=== PATIENT | female | born 1945 | race African-American/Black ===

== ENCOUNTER 2025-04-11 16:06 | Inpatient (IN) | payer OTHER ==
[~2025-04-11] VITALS: Ht 170.2 cm; Wt 112.0 kg
[2025-04-11] MEDS: ALBUTEROL (0.083%) 2.5MG/3ML NEB HHN SCH (16:33)
[2025-04-11] MEDS: IPRATROPIUM BROMIDE (0.02%) 0.5MG/2.5ML NEB HHN SCH (16:33)
[2025-04-11 16:36] VITALS: PULSE 98; RESP 18
[2025-04-11] MEDS: METHYLPREDNISOLONE SOD SUCC 125MG/2ML (ACT-O-VIAL) IV ONE (16:57)
[2025-04-11 17:39] LABS: INR 1.1
[2025-04-11 17:41] LABS: CREATININE 1.0 mg/dL (0.6-1.0); UREA NITROGEN BLOOD 9 mg/dL (9-23)
[2025-04-11 17:42] LABS: BASOPHILS % 0.2 % (0.0-2.0); EOSINOPHILS % 0.3 % (0.0-5.0); HEMATOCRIT. 39.0 % (36.0-48.0); HEMOGLOBIN. 12.8 g/dL (12.0-16.0); LYMPHOCYTES % 11.6 % (20.0-50.0); MEAN PLATELET VOLUME 8.5 fl (7.4-10.4); MONOCYTES % 6.8 % (2.0-8.0); NEUTROPHILS % 81.1 % (40.0-76.0); PLATELET 157 x1000/uL (130-400); RED BLOOD CELL COUNT 4.57 mill/uL (4.2-5.4); RED CELL DISTRIBUTION WIDTH 17.5 % (11.6-14.6)
[2025-04-11 17:43] LABS: ASPARTATE AMINOTRANSFERASE 29 IU/L (<34); BILIRUBIN DIRECT 0.3 mg/dL (<=3.0); BILIRUBIN TOTAL 1.1 mg/dL (0.1-1.0); PROTEIN TOTAL 7.5 g/dL (6.0-8.3)
[2025-04-11 17:48] LABS: TROPONIN I HIGH SENSITIVITY 77 ng/L (3.0-34)
[2025-04-11] MEDS: FUROSEMIDE 40MG/4ML VIAL IVP ONE (17:52)
[2025-04-11] MEDS: POTASSIUM CHLORIDE 20MEQ/PACKET PO ONE (18:15)
[2025-04-11] MEDS: MAGNESIUM 1 G PREMIX 100 ML IV ONE (21:05)
[2025-04-11 23:45] VITALS: BP 154/70; PULSE 77; RESP 22; TEMP 36.6404
[2025-04-11] MEDS: IPRATROPIUM/ALBUTEROL 0.5-3(2.5)MG/3ML NEB NEB SCH (23:45)
[2025-04-11] MEDS ORDERED: CLONIDINE 0.1MG TABLET PO PRN (23:45)
[2025-04-11] MEDS ORDERED: ONDANSETRON HCL 4MG/2ML INJ IV PRN (23:45)
[2025-04-11] MEDS ORDERED: ZOLPIDEM TARTRATE 5MG TABLET PO PRN (23:45)
[2025-04-11] MEDS ORDERED: MAGNESIUM/ALUMINUM HYDROXIDE/SIMETHICONE 30ML UDC PO PRN (23:45)
[2025-04-11] MEDS: METHYLPREDNISOLONE SOD SUCC 40MG/ML (ACT-O-VIAL) IV SCH (23:58)
[2025-04-12] VITALS (8 sets, daily range): BP systolic 126–154; BP diastolic 61–88; PULSE 69–94; RESP 18–22; TEMP 36.3–36.9; O2SAT 95–100
[2025-04-12] MEDS ORDERED: FURO-152 PO (00:55)
[2025-04-12] MEDS ORDERED: LOSA50TA41 PO (00:55)
[2025-04-12] MEDS: PANTOPRAZOLE SODIUM 40 MG/VIAL IV SCH (09:03)
[2025-04-12] MEDS: ENOXAPARIN 40MG/0.4ML SYR SUBCUT SCH (09:04)
[2025-04-12 09:54] LABS: BASOPHILS % 0.2 % (0.0-2.0); EOSINOPHILS % 0.0 % (0.0-5.0); HEMATOCRIT. 39.0 % (36.0-48.0); HEMOGLOBIN. 12.8 g/dL (12.0-16.0); LYMPHOCYTES % 9.9 % (20.0-50.0); MEAN PLATELET VOLUME 9.0 fl (7.4-10.4); MONOCYTES % 2.8 % (2.0-8.0); NEUTROPHILS % 87.1 % (40.0-76.0); PLATELET 161 x1000/uL (130-400); RED BLOOD CELL COUNT 4.58 mill/uL (4.2-5.4); RED CELL DISTRIBUTION WIDTH 17.9 % (11.6-14.6)
[2025-04-12 10:23] LABS: CREATININE 0.9 mg/dL (0.6-1.0)
[2025-04-12 10:24] LABS: UREA NITROGEN BLOOD 10 mg/dL (9-23)
[2025-04-12 10:37] LABS: TROPONIN I HIGH SENSITIVITY 136 ng/L (3.0-34)
[2025-04-12] MEDS: ACETAMINOPHEN 325MG TABLET PO PRN (11:37)
[2025-04-12 17:45] LABS: TROPONIN I HIGH SENSITIVITY 136 ng/L (3.0-34)
[2025-04-12] MEDS: HYDROCODONE/ACETAMINOPHEN 5/325MG TABLET PO PRN (23:21)
[2025-04-13] VITALS (8 sets, daily range): BP systolic 125–130; BP diastolic 51–81; PULSE 66–86; RESP 16–18; TEMP 36.3–36.8; O2SAT 90–100
[2025-04-13 09:04] LABS: HEMATOCRIT. 39.4 % (36.0-48.0); HEMOGLOBIN. 12.9 g/dL (12.0-16.0); MEAN PLATELET VOLUME 9.0 fl (7.4-10.4); PLATELET 176 x1000/uL (130-400); RED BLOOD CELL COUNT 4.60 mill/uL (4.2-5.4); RED CELL DISTRIBUTION WIDTH 18.7 % (11.6-14.6)
[2025-04-13 09:16] LABS: CREATININE 0.9 mg/dL (0.6-1.0)
[2025-04-13 09:18] LABS: UREA NITROGEN BLOOD 13 mg/dL (9-23)
[2025-04-13 12:03] LABS: BAND% 3.0 % (1.0-6.0); LYMPHOCYTES % MANUAL 5.0 % (20.0-60.0); MONOCYTES % MANUAL 4.0 % (2.0-8.0); NEUTROPHILS % MANUAL 88.0 % (45.0-75.0); PLATELET ESTIMATE NORMAL
[2025-04-14] VITALS (9 sets, daily range): BP systolic 114–137; BP diastolic 48–68; PULSE 63–76; RESP 16–21; TEMP 36.5–37; O2SAT 90–100
[2025-04-14 06:22] LABS: BASOPHILS % 1.1 % (0.0-2.0); CREATININE 1.0 mg/dL (0.6-1.0); EOSINOPHILS % 0.0 % (0.0-5.0); HEMATOCRIT. 39.9 % (36.0-48.0); HEMOGLOBIN. 12.9 g/dL (12.0-16.0); LYMPHOCYTES % 7.7 % (20.0-50.0); MEAN PLATELET VOLUME 9.0 fl (7.4-10.4); MONOCYTES % 1.7 % (2.0-8.0); NEUTROPHILS % 89.5 % (40.0-76.0); PLATELET 174 x1000/uL (130-400); RED BLOOD CELL COUNT 4.65 mill/uL (4.2-5.4); RED CELL DISTRIBUTION WIDTH 18.7 % (11.6-14.6)
[2025-04-14 06:26] LABS: UREA NITROGEN BLOOD 21 mg/dL (9-23)
[2025-04-14] MEDS ORDERED: NALOXONE HCL 0.4MG/ML VIAL IV PRN (12:15)
[2025-04-14] MEDS: AMLODIPINE 2.5MG TABLET PO SCH (21:44)
[2025-04-15] VITALS (9 sets, daily range): BP systolic 113–133; BP diastolic 50–65; PULSE 71–78; RESP 18–20; TEMP 36.6–37.4; O2SAT 91–100
[2025-04-15 06:26] LABS: BASOPHILS % 0.1 % (0.0-2.0); EOSINOPHILS % 0.0 % (0.0-5.0); HEMATOCRIT. 40.6 % (36.0-48.0); HEMOGLOBIN. 13.0 g/dL (12.0-16.0); LYMPHOCYTES % 9.9 % (20.0-50.0); MEAN PLATELET VOLUME 8.8 fl (7.4-10.4); MONOCYTES % 3.3 % (2.0-8.0); NEUTROPHILS % 86.7 % (40.0-76.0); PLATELET 185 x1000/uL (130-400); RED BLOOD CELL COUNT 4.71 mill/uL (4.2-5.4); RED CELL DISTRIBUTION WIDTH 18.8 % (11.6-14.6)
[2025-04-15 07:14] LABS: CREATININE 0.9 mg/dL (0.6-1.0)
[2025-04-15 07:15] LABS: UREA NITROGEN BLOOD 19 mg/dL (9-23)
[2025-04-15 07:16] LABS: ASPARTATE AMINOTRANSFERASE 27 IU/L (<34)
[2025-04-15 07:17] LABS: BILIRUBIN TOTAL 0.4 mg/dL (0.1-1.0); PROTEIN TOTAL 7.1 g/dL (6.0-8.3)
[2025-04-16] VITALS (14 sets, daily range): BP systolic 117–139; BP diastolic 47–56; PULSE 73–98; RESP 18–40; TEMP 36.1–37.1; O2SAT 95–98
[2025-04-16] MEDS: MORPHINE SULFATE 2 MG/ML INJ (NOT FOR IM USE) IV PRN (06:27)
[2025-04-16 06:45] LABS: BASOPHILS % 0.1 % (0.0-2.0); EOSINOPHILS % 0.1 % (0.0-5.0); HEMATOCRIT. 38.5 % (36.0-48.0); HEMOGLOBIN. 12.3 g/dL (12.0-16.0); LYMPHOCYTES % 13.7 % (20.0-50.0); MEAN PLATELET VOLUME 9.2 fl (7.4-10.4); MONOCYTES % 8.6 % (2.0-8.0); NEUTROPHILS % 77.5 % (40.0-76.0); PLATELET 176 x1000/uL (130-400); RED BLOOD CELL COUNT 4.45 mill/uL (4.2-5.4); RED CELL DISTRIBUTION WIDTH 18.6 % (11.6-14.6)
[2025-04-16 06:52] LABS: CREATININE 0.9 mg/dL (0.6-1.0); UREA NITROGEN BLOOD 24 mg/dL (9-23)
[2025-04-16 06:54] LABS: ASPARTATE AMINOTRANSFERASE 31 IU/L (<34); BILIRUBIN TOTAL 0.4 mg/dL (0.1-1.0); PROTEIN TOTAL 6.6 g/dL (6.0-8.3)
[2025-04-16 17:21] LABS: BG BASE EXCESS 18.2 mmol/L (-2.0-3.0); BG CARBOXYHEMOGLOBIN 0.5 % (0.5-1.5); BG DEOXYHEMOGLOBIN 6.6 % (0.0-5.0); BG FLOW(L/min) 3.00 L/min; BG FRACTION INSPIRED OXYGEN 32; BG HCO3 ACT 49.6 mmol/L (21.0-28.0); BG METHEMOGLOBIN 0.1 % (0.5-1.5); BG OXYGEN SATURATION 93.4 % (94.0-98.0); BG OXYHEMOGLOBIN 92.8 % (94.0-98.0); BG PCO2 96.4 mmHg (32.0-45.0); BG PH 7.329 (7.350-7.450); BG PO2 69.8 mmHg (83.0-108.0); BG SAMPLE SITE RIGHT BRACHIAL; BG TOTAL HEMOGLOBIN 14.4 g/dL (12.0-16.0); BG VENT MODE NASAL CANNULA
[2025-04-16 20:12] LABS: BG BASE EXCESS 16.6 mmol/L (-2.0-3.0); BG CARBOXYHEMOGLOBIN 1.0 % (0.5-1.5); BG DEOXYHEMOGLOBIN 2.2 % (0.0-5.0); BG HCO3 ACT 46.7 mmol/L (21.0-28.0); BG METHEMOGLOBIN 0.3 % (0.5-1.5); BG OXYGEN SATURATION 97.8 % (94.0-98.0); BG OXYHEMOGLOBIN 96.5 % (94.0-98.0); BG PCO2 84.9 mmHg (32.0-45.0); BG PH 7.358 (7.350-7.450); BG PO2 98.7 mmHg (83.0-108.0); BG TOTAL HEMOGLOBIN 14.0 g/dL (12.0-16.0); BG VENT MODE MASK - BIPAP
[2025-04-17] VITALS (12 sets, daily range): BP systolic 117–159; BP diastolic 51–70; PULSE 62–89; RESP 16–22; TEMP 36.4–36.7; O2SAT 90–99
[2025-04-17] MEDS: IPRATROPIUM/ALBUTEROL 0.5-3(2.5)MG/3ML NEB HHN SCH (09:28)
[2025-04-17 10:32] LABS: BASOPHILS % 0.2 % (0.0-2.0); EOSINOPHILS % 0.0 % (0.0-5.0); HEMATOCRIT. 42.1 % (36.0-48.0); HEMOGLOBIN. 13.1 g/dL (12.0-16.0); LYMPHOCYTES % 9.0 % (20.0-50.0); MEAN PLATELET VOLUME 8.9 fl (7.4-10.4); MONOCYTES % 4.2 % (2.0-8.0); NEUTROPHILS % 86.6 % (40.0-76.0); PLATELET 199 x1000/uL (130-400); RED BLOOD CELL COUNT 4.84 mill/uL (4.2-5.4); RED CELL DISTRIBUTION WIDTH 19.0 % (11.6-14.6)
[2025-04-17 10:54] LABS: CREATININE 0.8 mg/dL (0.6-1.0)
[2025-04-17 10:55] LABS: UREA NITROGEN BLOOD 22 mg/dL (9-23)
[2025-04-17 10:56] LABS: ASPARTATE AMINOTRANSFERASE 55 IU/L (<34)
[2025-04-17 10:57] LABS: BILIRUBIN TOTAL 0.5 mg/dL (0.1-1.0); PROTEIN TOTAL 7.0 g/dL (6.0-8.3)
[2025-04-18] VITALS (20 sets, daily range): BP systolic 121–152; BP diastolic 53–100; PULSE 58–89; RESP 15–35; TEMP 36.1–36.7; O2SAT 89–97
[2025-04-18] MEDS: LEVOFLOXACIN 500MG PREMIX 100 ML IV SCH (20:19)
[2025-04-19] VITALS (14 sets, daily range): BP systolic 123–148; BP diastolic 51–72; PULSE 55–85; RESP 14–30; TEMP 36.7–37.1; O2SAT 90–99
[2025-04-19 08:06] LABS: BASOPHILS % 0.2 % (0.0-2.0); EOSINOPHILS % 0.0 % (0.0-5.0); HEMATOCRIT. 40.7 % (36.0-48.0); HEMOGLOBIN. 13.0 g/dL (12.0-16.0); LYMPHOCYTES % 8.4 % (20.0-50.0); MEAN PLATELET VOLUME 8.8 fl (7.4-10.4); MONOCYTES % 2.6 % (2.0-8.0); NEUTROPHILS % 88.8 % (40.0-76.0); PLATELET 207 x1000/uL (130-400); RED BLOOD CELL COUNT 4.72 mill/uL (4.2-5.4); RED CELL DISTRIBUTION WIDTH 18.4 % (11.6-14.6)
[2025-04-19 08:20] LABS: CREATININE 0.6 mg/dL (0.6-1.0)
[2025-04-19 08:21] LABS: UREA NITROGEN BLOOD 22 mg/dL (9-23)
[2025-04-19] MEDS ORDERED: PROT20 MT (11:10)
[2025-04-19] MEDS ORDERED: PRED10TA23 MT (11:10)
[2025-04-19] MEDS ORDERED: LEVO-65 MT (11:10)
[2025-04-19 11:44] LABS: BG BASE EXCESS 18.1 mmol/L (-2.0-3.0); BG CARBOXYHEMOGLOBIN 1.1 % (0.5-1.5); BG DEOXYHEMOGLOBIN 3.8 % (0.0-5.0); BG FLOW(L/min) 6.00 L/min; BG FRACTION INSPIRED OXYGEN 44; BG HCO3 ACT 47.9 mmol/L (21.0-28.0); BG METHEMOGLOBIN 0.3 % (0.5-1.5); BG OXYGEN SATURATION 96.1 % (94.0-98.0); BG OXYHEMOGLOBIN 94.8 % (94.0-98.0); BG PCO2 82.2 mmHg (32.0-45.0); BG PH 7.383 (7.350-7.450); BG PO2 82.5 mmHg (83.0-108.0); BG SAMPLE SITE RIGHT RADIAL; BG TOTAL HEMOGLOBIN 14.2 g/dL (12.0-16.0); BG VENT MODE NASAL CANNULA
[2025-04-20] VITALS (13 sets, daily range): BP systolic 128–148; BP diastolic 53–93; PULSE 59–82; RESP 20–31; TEMP 36.4–36.9; O2SAT 89–96
[2025-04-21] VITALS (14 sets, daily range): BP systolic 125–158; BP diastolic 52–70; PULSE 56–84; RESP 13–34; TEMP 36.1–37.2; O2SAT 88–99
[2025-04-22] VITALS (9 sets, daily range): BP systolic 112–149; BP diastolic 56–73; PULSE 65–87; RESP 19–24; TEMP 36.5–36.8; O2SAT 89–99
[2025-04-22 06:15] LABS: CREATININE 0.7 mg/dL (0.6-1.0); UREA NITROGEN BLOOD 25 mg/dL (9-23)
[2025-04-22 06:27] LABS: BASOPHILS % 0.1 % (0.0-2.0); EOSINOPHILS % 0.1 % (0.0-5.0); HEMATOCRIT. 40.8 % (36.0-48.0); HEMOGLOBIN. 13.2 g/dL (12.0-16.0); LYMPHOCYTES % 12.1 % (20.0-50.0); MEAN PLATELET VOLUME 8.6 fl (7.4-10.4); MONOCYTES % 3.1 % (2.0-8.0); NEUTROPHILS % 84.6 % (40.0-76.0); PLATELET 192 x1000/uL (130-400); RED BLOOD CELL COUNT 4.75 mill/uL (4.2-5.4); RED CELL DISTRIBUTION WIDTH 18.3 % (11.6-14.6)
[2025-04-22] MEDS: LEVOFLOXACIN 500MG TABLET PO SCH (21:28)
[2025-04-23] VITALS: BP 125/60; PULSE 62; RESP 17; TEMP 36.7; O2SAT 97
[2025-04-23 04:00] VITALS: BP 144/67; PULSE 70; RESP 18; TEMP 36.6; O2SAT 94
[2025-04-23 08:00] VITALS: BP 151/66; PULSE 74; RESP 17; TEMP 36.6; O2SAT 93
[2025-04-23 12:00] VITALS: BP 146/71; PULSE 74; RESP 18; TEMP 36.7; O2SAT 92
[2025-04-23 16:00] VITALS: BP 128/58; PULSE 63; RESP 16; TEMP 36.3; O2SAT 94
[2025-04-23 20:00] VITALS: BP 138/57; PULSE 63; RESP 19; TEMP 36.4; O2SAT 99
[2025-04-23] MEDS: AMLODIPINE 5MG TABLET PO SCH (21:54)
[2025-04-24] VITALS: BP 94/56; PULSE 91; RESP 18; TEMP 36.4; O2SAT 99
[2025-04-24 04:00] VITALS: BP 140/62; PULSE 65; RESP 18; TEMP 36.8; O2SAT 98
[2025-04-24 08:00] VITALS: BP 138/61; PULSE 66; RESP 20; TEMP 36.5; O2SAT 93
[2025-04-24] MEDS: ENOXAPARIN 30MG/0.3ML SYR SUBCUT SCH (08:48)
[2025-04-24 12:00] VITALS: BP 117/69; PULSE 75; RESP 20; TEMP 36.7; O2SAT 92
[2025-04-24 16:00] VITALS: BP 144/64; PULSE 77; RESP 20; TEMP 37.3; O2SAT 90
[2025-04-24 20:00] VITALS: BP 150/56; PULSE 73; RESP 18; TEMP 36.9; O2SAT 94
[2025-04-25] VITALS: BP 131/60; PULSE 66; RESP 18; TEMP 36.7; O2SAT 98
[2025-04-25 04:00] VITALS: BP 149/72; PULSE 70; RESP 18; TEMP 36.6; O2SAT 96
[2025-04-25 08:00] VITALS: BP 124/55; PULSE 65; RESP 17; TEMP 36.5; O2SAT 95
[2025-04-25 12:00] VITALS: BP 128/53; PULSE 67; RESP 18; TEMP 36.8; O2SAT 99
[2025-04-25 14:09] LABS: A/G RATIO 0.7 (0.7-1.7); BETA GLOBULIN 1.0 g/dL (0.7-1.3); GAMMA GLOBULINS 2.3 g/dL (0.4-1.8); GLOBULIN TOTAL 4.6 g/dL (2.2-3.9); M-SPIKE Not Observed g/dL (Not Observed); TOTAL PROTEIN SERUM 7.6 g/dL (6.0-8.5)
[2025-04-25 16:00] VITALS: BP 125/56; PULSE 69; RESP 17; TEMP 36.8; O2SAT 99
[2025-04-25 20:00] VITALS: BP 148/62; PULSE 66; RESP 18; TEMP 36.3; O2SAT 99
[2025-04-26] VITALS: BP 107/59; PULSE 61; RESP 19; TEMP 36.1; O2SAT 97
[2025-04-26 08:00] VITALS: BP 116/53; PULSE 63; RESP 17; TEMP 36.4; O2SAT 96
[2025-04-26 12:00] VITALS: BP 122/54; PULSE 78; RESP 17; TEMP 36.4; O2SAT 95
[2025-04-26 15:10] VITALS: BP 122/54; PULSE 78; RESP 17; TEMP 97.5
== END 2025-04-26 15:46 | disposition home health service (06) | DRG 190 ==
LOC: ER 16:06 → EDBEDREQ 18:23 → EDBEDREQTM 18:23 → ENRESERV 21:18 → 7WST 22:33 → 5EST 04-17 19:04 → 7EST 04-23 01:51
PROVIDERS: ADMIT Internal Medicine; ATTEND Internal Medicine
PROC: 5A09357 Assistance with Respiratory Ventilation, Less than 24 Consecutive Hours, Continuous Positive Airway Pressure (ICD-10-PCS; principal; 2025-04-16)
PROC: 5A09357 Assistance with Respiratory Ventilation, Less than 24 Consecutive Hours, Continuous Positive Airway Pressure (ICD-10-PCS; 2025-04-17)
PROC: 5A09357 Assistance with Respiratory Ventilation, Less than 24 Consecutive Hours, Continuous Positive Airway Pressure (ICD-10-PCS; 2025-04-18)
PROC: 5A09357 Assistance with Respiratory Ventilation, Less than 24 Consecutive Hours, Continuous Positive Airway Pressure (ICD-10-PCS; 2025-04-21)
DX: J44.1 Chronic obstructive pulmonary disease with (acute) exacerbation (principal); J96.90 Respiratory failure, unspecified, unspecified whether with hypoxia or hypercapnia; R53.2 Functional quadriplegia; C79.51 Secondary malignant neoplasm of bone; I50.32 Chronic diastolic (congestive) heart failure; I27.20 Pulmonary hypertension, unspecified; I11.0 Hypertensive heart disease with heart failure; G89.29 Other chronic pain; I07.1 Rheumatic tricuspid insufficiency; E66.01 Morbid (severe) obesity due to excess calories; E78.5 Hyperlipidemia, unspecified; F32.A Depression, unspecified; Z66 Do not resuscitate; F17.200 Nicotine dependence, unspecified, uncomplicated; Z68.38 Body mass index [BMI] 38.0-38.9, adult; Z55.6 Problems related to health literacy; Z79.899 Other long term (current) drug therapy; Z85.3 Personal history of malignant neoplasm of breast; Z92.3 Personal history of irradiation
CPT/HCPCS: 36415; 36600; 71045; 71275; 72148; 74176; 78306; 80048; 80053; 80076; 82375; 82784; 82805; 82962; 83735; 83880; 84155; 84165; 84484; 85025; 85379; 86300; 86304; 86334; 93005; 93306; 93970; 94003; 94070; 94640; 94660; 94664; 97163; 97164; 97166; 97530; 97535; 98960; 99291; A4606; A9503; J1650; J1938; J1956; J2270; J2470; J2919; J3475